=== PATIENT | female | born 1995 | race Two or more races ===

== ENCOUNTER 2022-10-28 11:12 | Emergency (ER) | payer OTHER ==
[~2022-10-28] VITALS: Ht 165.1 cm; Wt 79.8 kg
[2022-10-28 16:53] LABS: HEMATOCRIT 36.8 % (36.0-45.00); HEMOGLOBIN 11.9 g/dL (12.0-15.00); MEAN CELL VOLUME 83.1 fL (80.00-100.00); MEAN CORPUSCULAR HEMOGLOBIN 26.8 pg (27.00-32.0); MEAN CORPUSCULAR HGB CONC 32.3 g/dl (32.0-36.0); PLATELET COUNT 346 K/uL (150-450); RED BLOOD COUNT 4.42 M/uL (4.00-6.00); RED CELL DISTRIBUTION WIDTH 14.2 % (11.5-14.5)
[2022-10-28] MEDS ORDERED: OSEL75CA PO (18:01)
[2022-10-28] MEDS ORDERED: MUCINEX FAST-M180 M2 PO (18:01)
== END 2022-10-28 18:11 | disposition home or self-care (01) ==
LOC: ER 11:13
PROVIDERS: Nurse Practitioner Family
DX: J10.1 Influenza due to other identified influenza virus with other respiratory manifestations (principal); Z88.2 Allergy status to sulfonamides; Z20.822 Contact with and (suspected) exposure to COVID-19